=== PATIENT | female | born 2000 | race African-American/Black ===

== ENCOUNTER 2023-11-30 17:17 | Emergency (ER) | payer OTHER, SELFPAY ==
[2023-11-30 17:24] VITALS: BP 122/88; PULSE 93; RESP 18; TEMP 37.3; O2SAT 98; BMI 34.1
--- NOTE | 2023-11-30 17:47 | CT_ITS ---
The [address] [address] Patient Name: DEBBIE SHEPHERD MRN: [id number] date: 2000 Sex: F Assigned Patient Location: ER Current Patient Location: ER Accession/Order Number: [id number] Exam Date: 11/30/2023 18:16 Report Date: 11/30/2023 18:36 At the request of: GALE DELA CRUZ Procedure: CT head/brain wo con EXAM: CT head/brain wo con HISTORY: headache Findings: CT of the head was obtained without IV contrast. There does appear to be cerebellar ectopia and possibly Chiari 1 type malformation. MRI could confirm. There is no evidence of intracranial bleed or localized mass effect. There is no extra-axial fluid collection. Ethmoid sinus mucosal thickening. CT/CT head/brain wo con IMPRESSION: No evidence of acute intracranial hemorrhage. No mass effect or midline shift. Features suspicious for cerebellar ectopia or possibly Chiari I malformation. MRI of the brain would better interrogate. Mild ethmoid sinus mucosal thickening Electronically authenticated by: EILEEN REBOLLEDO Date: 11/30/2023 18:36
--- NOTE | 2023-11-30 17:50 | ED_ITS ---
Documented by User: TIM Pond 11/30/23 19:08 HPI - General Adult General Chief complaint: Upper Respiratory Infection Stated complaint: URTI, Headache, Dizziness Time Seen by Provider: 11/30/23 17:35 Source: patient Mode of arrival: Wheelchair History of Present Illness HPI narrative: Patient is a 23-year-old female who reports a 2 to 3-day history of headache, light sensitivity, weakness, diffuse bodyaches, cough, sore throat. She has not had any objective fevers. She reports multiple episodes of nausea and vomiting. She has not had any diarrhea. She is not concerned for . No sick contacts in the home. She has had no sputum production. She has been using ucyk-rvu-prdfnld cold and flu medication without improvement. Related Data Previous Rx's Medication Instructions Recorded lyvkbxgthavqrrc-aiizfybrxqaoktd-VS 10 ml PO Q6H PRN cold symptoms 11/30/23 2 mg-30 mg-10 mg/5 mL oral syrup #200 mL (Bromfed DM) ketorolac 10 mg tablet 10 mg PO TID PRN pain #10 tabs 11/30/23 metoclopramide HCl 10 mg tablet 10 mg PO Q6H PRN nausea and 11/30/23 (Reglan) vomiting #12 tabs ondansetron 4 mg disintegrating 4 mg PO Q6H PRN nausea and 11/30/23 tablet vomiting #12 tabs Allergies Allergy/AdvReac Type Severity Reaction Status Date / Time amoxicillin Allergy Severe Verified 11/30/23 17:27 Review of Systems ROS Constitutional Denies: fever or chills Eyes Reports: light sensitivity; Denies: change in vision Ears, nose, mouth, and throat Reports: throat pain and nasal congestion; Denies: neck pain Cardiovascular Denies: chest pain Respiratory Reports: cough; Denies: shortness of breath Gastrointestinal Reports: nausea and vomiting Genitourinary Denies: painful urination Musculoskeletal Denies: back pain or neck pain Integumentary/Breast Denies: rash Neurological Reports: headache PFSH PFSH Medical History (Updated 11/30/23 @ 19:03 by TIM Pond) Migraine ?G43.909 - Migraine, unspecified, not intractable, without status migrainosus (ICD-10) Exam Narrative Exam Narrative: Gen.: Awake, alert, in no distress Head: Normocephalic, atraumatic ENT: Moist mucous membranes, Pharyngeal erythema with no tonsillar edema. Uvula midline with no trismus or drooling. Airway widely open and patent. Clear speech. Bilateral TMs clear Respiratory: No respiratory distress, lungs clear bilaterally; No wheezing or r honchi, dry cough noted Cardio: Regular rate and rhythm Extremities: Moves extremities equally Psych: Normal mood and affect Neuro: No focal neuro deficit Skin: Warm, dry, intact Constitutional Vital Signs, click to edit/add: Last Vital Signs Temp 99.1 F 11/30/23 17:24 Pulse 93 H 11/30/23 17:24 Resp 18 11/30/23 17:24 BP 122/88 11/30/23 17:24 Pulse Ox 98 11/30/23 17:24 Course Vital Signs Vital signs: Vital Signs Temperature 99.1 F 11/30/23 17:24 Pulse Rate 93 H 11/30/23 17:24 Respiratory Rate 18 11/30/23 17:24 Blood Pressure 122/88 11/30/23 17:24 Pulse Oximetry 98 11/30/23 17:24 Temperature 99.1 F 11/30/23 17:24 Pulse Rate 93 H 11/30/23 17:24 Respiratory Rate 18 11/30/23 17:24 Blood Pressure 122/88 11/30/23 17:24 Pulse Oximetry 98 11/30/23 17:24 Medical Decision Making MDM Narrative Medical decision making narrative: Patient medicated with IV fluids, Toradol, Reglan, Benadryl. She is negative for COVID, influenza, strep. CT of the brain was performed for complaint of headache. This shows no evidence of any acute process although the patient was found to have an abnormality, possible Chiari malformation. She will need to follow-up for an MRI. She was given these results by attending physician on reevaluation. Her vital signs are within normal limits. She has no nuchal rigidity, altered mental status, fevers. She had no episodes of emesis in the emergency department. She will be sent home with symptomatic treatment for sore throat, cough and congestion with Bromfed-DM and Toradol and Reglan were given for headache symptoms and bodyaches. Follow-up with PCP and return to the ER if symptoms change or worsen. Medical Records Medical records reviewed: Yes I reviewed the patient's medical records Lab Data Lab results reviewed: Yes I reviewed the patient's lab results Labs: Lab Results 11/30/23 Range/Units 17:46 Influenza Type A Ag Negative Influenza Type B Ag Negative SARS-CoV-2 Ag (CV2AG) Negative (NEGATIVE) Streptococcus Screen Negative Imaging Data CT scan - head: Attestation: I have reviewed the pertinent imaging results. Radiologist's impression: ITS Impressions Head CT 11/30/23 17:47 IMPRESSION: No evidence of acute intracranial hemorrhage. No mass effect or midline shift. Features suspicious for cerebellar ectopia or possibly Chiari I malformation. MRI of the brain would better interrogate. Mild ethmoid sinus mucosal thickening Electronically authenticated by: EILEEN REBOLLEDO Date: 11/30/2023 18:36 Discharge Plan Discharge Chief Complaint: Upper Respiratory Infection Clinical Impression: Upper respiratory infection, Headache Patient Disposition: Home, Self-Care Time of Disposition Decision: 19:03 Condition: Good Prescriptions / Home Meds: New ketorolac 10 mg tablet 10 mg PO TID PRN (Reason: pain) Qty: 10 0RF ppscfbdummpcqip-unckljorp-YZ [Bromfed DM] 2-30-10 mg/5 mL syrup 10 ml PO Q6H PRN (Reason: cold symptoms) Qty: 200 0RF metoclopramide HCl [Reglan] 10 mg tablet 10 mg PO Q6H PRN (Reason: nausea and vomiting) Qty: 12 0RF ondansetron 4 mg tablet,disintegrating 4 mg PO Q6H PRN (Reason: nausea and vomiting) Qty: 12 0RF Instructions: Upper Respiratory Infection (ED), Acute Headache (ED) Stand Alone Forms: Portal Instructions Referrals: [facility] [Primary Care Provider] - 1 week Discharge Date/Time: 11/30/23 19:32 Documented by User: Curt Hall MD 11/30/23 19:44 HPI - General Adult General Chief complaint: Upper Respiratory Infection Stated complaint: URTI, Headache, Dizziness Time Seen by Provider: 11/30/23 17:35 Related Data Previous Rx's Medication Instructions Recorded zugocmgakuxltqi-ndprrgrwmhzvhbp-OH 10 ml PO Q6H PRN cold symptoms 11/30/23 2 mg-30 mg-10 mg/5 mL oral syrup #200 mL (Bromfed DM) ketorolac 10 mg tablet 10 mg PO TID PRN pain #10 tabs 11/30/23 metoclopramide HCl 10 mg tablet 10 mg PO Q6H PRN nausea and 11/30/23 (Reglan) vomiting #12 tabs ondansetron 4 mg disintegrating 4 mg PO Q6H PRN nausea and 11/30/23 tablet vomiting #12 tabs Allergies Allergy/AdvReac Type Severity Reaction Status Date / Time amoxicillin Allergy Severe Verified 11/30/23 17:27 [facility] Medical History (Updated 11/30/23 @ 19:03 by TIM Pond) Migraine ?G43.909 - Migraine, unspecified, not intractable, without status migrainosus (ICD-10) Exam Constitutional Vital Signs, click to edit/add: Last Vital Signs Temp 99.1 F 11/30/23 17:24 Pulse 93 H 11/30/23 17:24 Resp 18 11/30/23 17:24 BP 122/88 11/30/23 17:24 Pulse Ox 98 11/30/23 17:24 Course Vital Signs Vital signs: Vital Signs Temperature 99.1 F 11/30/23 17:24 Pulse Rate 93 H 11/30/23 17:24 Respiratory Rate 18 11/30/23 17:24 Blood Pressure 122/88 11/30/23 17:24 Pulse Oximetry 98 11/30/23 17:24 Temperature 99.1 F 11/30/23 17:24 Pulse Rate 93 H 11/30/23 17:24 Respiratory Rate 18 11/30/23 17:24 Blood Pressure 122/88 11/30/23 17:24 Pulse Oximetry 98 11/30/23 17:24 Medical Decision Making MDM Narrative Medical decision making narrative: Patient medicated with IV fluids, Toradol, Reglan, Benadryl. She is negative for COVID, influenza, strep. CT of the brain was performed for complaint of headache. This shows no evidence of any acute process although the patient was found to have an abnormality, possible Chiari malformation. She will need to follow-up for an MRI. She was given these results by attending physician on reevaluation. Her vital signs are within normal limits. She has no nuchal rigidity, altered mental status, fevers. She had no episodes of emesis in the emergency department. She will be sent home with symptomatic treatment for sore throat, cough and congestion with Bromfed-DM and Toradol and Reglan were given for headache symptoms and bodyaches. Follow-up with PCP and return to the ER if symptoms change or worsen. I, Dr Hall, have reviewed the above progress note and course of action in the ER; agree with the above. I have personally seen and evaluated this patient, gone over history and physical, and discussed disposition and treatment plan with the patient. Patient was given a copy of her CT of her head. I discussed with the patient the recommendation for follow-up of MRI of her head, she was given a copy of her CAT scan that highlighted the concern for Chiari malformation on the recommendation for MRI of the brain. Patient still has some mild nausea at discharge, she was given a dose of Zofran. Patient's headache has significantly improved. Lab Data Labs: Lab Results 11/30/23 Range/Units 17:46 Influenza Type A Ag Negative Influenza Type B Ag Negative SARS-CoV-2 Ag (CV2AG) Negative (NEGATIVE) Streptococcus Screen Negative Imaging Data CT scan - head: Radiologist's impression: ITS Impressions Head CT 11/30/23 17:47 IMPRESSION: No evidence of acute intracranial hemorrhage. No mass effect or midline shift. Features suspicious for cerebellar ectopia or possibly Chiari I malformation. MRI of the brain would better interrogate. Mild ethmoid sinus mucosal thickening Electronically authenticated by: EILEEN REBOLLEDO Date: 11/30/2023 18:36 Discharge Plan Discharge Chief Complaint: Upper Respiratory Infection Clinical Impression: Upper respiratory infection, Headache Patient Disposition: Home, Self-Care Time of Disposition Decision: 19:03 Condition: Good Prescriptions / Home Meds: New ketorolac 10 mg tablet 10 mg PO TID PRN (Reason: pain) Qty: 10 0RF sfueiesaysfghhf-fthwybsxm-SM [Bromfed DM] 2-30-10 mg/5 mL syrup 10 ml PO Q6H PRN (Reason: cold symptoms) Qty: 200 0RF metoclopramide HCl [Reglan] 10 mg tablet 10 mg PO Q6H PRN (Reason: nausea and vomiting) Qty: 12 0RF ondansetron 4 mg tablet,disintegrating 4 mg PO Q6H PRN (Reason: nausea and vomiting) Qty: 12 0RF Instructions: Upper Respiratory Infection (ED), Acute Headache (ED) Stand Alone Forms: Portal Instructions Referrals: [facility] [Primary Care Provider] - 1 week Discharge Date/Time: 11/30/23 19:32
[2023-11-30] MEDS: METOCLOPRAMIDE HCL 10 MG/2 ML VIAL IVP (18:05)
[2023-11-30] MEDS: KETOROLAC TROMETHAMINE 30 MG/ML VIAL IVP (18:05)
[2023-11-30] MEDS: 0.9 % SODIUM CHLORIDE 1,000 ML 1000 ML IV (18:05)
[2023-11-30] MEDS: DIPHENHYDRAMINE HCL 50 MG/ML (1ML) VIAL 25 MG IV (18:05)
[2023-11-30 18:26] LABS: Internal Control Within Normal Limits; Strep A Antigen Screen Negative
[2023-11-30 18:27] LABS: Influenza Virus A Antigen Negative; Influenza Virus B Antigen Negative; Internal Control Within Normal Limits; SARS-CoV-2 Ag NEGATIVE (NEGATIVE)
[2023-11-30] MEDS: ONDANSETRON PF 4 MG/2 ML VIAL IV (19:21)
== END 2023-11-30 19:32 | disposition home or self-care (01) ==
PROVIDERS: Physician Assistant; Emergency Provider Emergency Medicine
DX: R51.9 Headache, unspecified (principal); J06.9 Acute upper respiratory infection, unspecified; Z20.822 Contact with and (suspected) exposure to COVID-19
CPT/HCPCS: 70450; 87070; 87804; 87811; 87880; 96361; 96374; 96375; 99285; J1200; J1885; J2405; J2765

== ENCOUNTER 2025-09-25 07:38 | Emergency (ER) | payer SELFPAY ==
[2025-09-25 07:47] VITALS: BP 118/89; PULSE 110; TEMP 37.6; O2SAT 99; BMI 33.7
[2025-09-25 08:22] LABS: Hematocrit 43.4 % (36.0-48.0); Hemoglobin 14.1 g/dL (12.0-16.0); Immature Granulocytes Abs Auto 0.01 10^3/uL (0.00-0.03); Immature Granulocytes Pct Auto 0.2 % (0.0-0.5); Lymphocytes Absolute Auto 0.9 10^3/uL (1.2-3.8); Mean Corpuscular HGB Conc 32.5 g/dL (29.9-35.2); Mean Corpuscular Hemoglobin 28.3 pg (26.7-34.0); Mean Corpuscular Volume 87.1 fL (81.0-99.0); Platelet Count 251 10^3/uL (150-450); Red Blood Count 4.98 10^6/uL (4.20-5.40); White Blood Count 6.4 10^3/uL (4.0-11.0)
[2025-09-25] MEDS: 0.9 % SODIUM CHLORIDE 1,000 ML 1000 ML IV (08:28)
[2025-09-25] MEDS: KETOROLAC TROMETHAMINE 30 MG/ML VIAL IVP (08:28)
[2025-09-25] MEDS: DIPHENHYDRAMINE HCL 50 MG/ML VIAL 25 MG IVP (08:28)
[2025-09-25 08:31] LABS: Albumin Level 4.0 g/dL (3.4-5.0); Anion Gap 15.0; Blood Urea Nitrogen 7.0 mg/dL (7.0-18.0); Calcium 8.7 mg/dL (8.5-10.1); Carbon Dioxide 26.4 mmol/L (21.0-32.0); Chloride 101 mmol/L (98-107); Estimated GFR (African America >60 (>=60 mL/min/1.73m^2); Estimated GFR (Non-African Ame >60 (>=60 mL/min/1.73m^2); Glucose 89 mg/dL (74-106); Potassium 3.4 mmol/L (3.5-5.1); Sodium 139 mmol/L (136-145)
[2025-09-25 08:34] LABS: SARS-CoV-2 Ag POSITIVE (NEGATIVE)
--- OUTSIDE RECORDS SUMMARY | 2025-09-25 08:40 | XMS_ITS | Clinical Summary ---
Author Organization [facility] Address [id number] [address] [place] [address] Care Team Providers Care Outpatient Facility Physical Therapist Name Role Phone Services, [facility] Primary Care Provider Allergies Active AllergyReactionsCriticalityNoted ZvnuBlohllgeCgtloozeftkVmqcMdg55/30/2016 Medications No known medications Active Problems ProblemNoted DateDiagnosed DateMigraine with aura and without status migrainosus 08/13/2022Intermittent sccvbd9501/03/2019 Overview (01/03/2019): No inhaler use Mild tetrahydrocannabinol (THC) abuse12/21/2018 Immunizations ImmunizationAdministration DatesNext OqqXOL1503/22/2023(Deferred: Other - immunity ),07/21/2019(Deferred: - IMMUNE),07/20/2019(Deferred: - immune)Tdap03/22/2023(), 07/21/2019(Deferred: - PATIENT HAD IN OFFICE DURING ),07/20/2019( Deferred: - received immunization during )Gnkggmbkx57/08/2023(), 07/21/2019() Family History Medical HistoryRelationNameCommentsAsthmaBrotherDiabetesMotherThyroid Issues MotherDiabetesPaternal GrandmotherAsthmaSisterRelationNameStatusCommentsBrother FatherAliveMotherAlivePaternal GrandmotherSister Social History Tobacco UseTypesPacks/DayYears UsedDateSmoking Tobacco: Every Day Vaping/E-cigarettesSmokeless Tobacco: Never Tobacco Cessation:Ready to Q uit: Not Asked; Counseling Given: Not Answered Comments:Pt reports it has been a long time since smoking Alcohol UseStandard Drinks/WeekCommentsNot Currently0 (1 standard drink = 0.6 oz pure alcohol)occasionalyOverall Financial Resource Strain (CARDIA)AnswerDate RecordedHow hard is it for you to pay for the very basics like food, housing, medical care, and heating?Not very hard05/04/2023HQ-2AnswerDate RecordedTotal Ilyqr873RAPARE - TransportationAnswerDate RecordedIn the past 12 months, has lack of transportation kept you from medical appointments or from getting medications?No03/19/2023In the past 12 months, has lack of transportation kept you from meetings, work, or from getting things needed for daily living?No03/19/2023Edinburgh Depression ScaleAnswerDate Recorded [place] Depression Scale Bnubd253The thought of harming myself has occurred to me.Never05/04/2023Housing InstabilityAnswerDate Recorded Are you worried or concerned that in the next two months you may not have stable housing that you own, rent or stay in as a part of a household?No03/19/2023 ChildcareAnswerDate RecordedDo problems getting childcare provider make it difficult for you to work or study?No05/04/2023EmploymentAnswerDate RecordedEmploymentUnknown 04/24/2019Hunger ScreeningAnswerDate RecordedWithin the past 12 months we worried whether our food would run out before we got money to buy more.Never True08/11/2023Within the past 12 months the food we bought just didn't last and we didn't have money to get more.Never True08/11/2023urpose - LifeAnswerDate RecordedPurpose and direction in qcbqGbddaeo26/11/2021CommentsNoSex and Gender InformationValueDate RecordedSex Assigned at BirthNot on fileLegal Sex Gskztz7606/18/2015 4:41 PM EDTGender IdentityNot on fileSexual OrientationNot on file Last Filed Vital Signs Vital SignReadingTime TakenCommentsBlood Tdmgloid048/6707 9:30 PM EDT Ljzkh3726 9:12 PM NKEQddqtnurmbx20 ??C (98.6 ??F)05/26/2025 9:12 PM EDT Respiratory Mkuu7032 9:12 PM EDTOxygen Ktmrpsrmlk971%05/26/2025 9:30 PM EDTInhaled Oxygen Concentration--Oewwpe13 kg (211 lb 10.3 oz)05/26/2025 9:12 PM PHFUlinzc970.6 cm (5' 4 )05/26/2025 9:12 PM EDTBody Mass Index36.33005/26/2025 9:12 PM EDT Plan of Treatment Health MaintenanceDue DateLast DoneCommentsTobacco Baamctefdw1999Adult BMI Follow Up Plan2017DTaP,Tdap and Td Vaccines (7 - Td or Tdap)03/31/2021 03/31/2011, 07/01/2004, 05/24/2002, Additional history existsPap Smear11/23/2023 11/23/2020epression Wchqdbozk71/, 05/04/2023Influenza Vaccine 5Adult BMI Xanpgeyey34/10/2025Tobacco Fswqmuiwx46/12/2026 05/26/2025 Goals GoalPatient Goal TypeAssociated ProblemsRecent ProgressPatient-Stated?Author home with Tari Alonso LSW Note: Evaluation of progress towards goal: delivered today Medical Devices Not on file Procedures Procedure NamePriorityDate/TimeAssociated DiagnosisCommentsPAP SMEARRoutine 11/23/2020 12:50 PM EST Screening for cervical cancer First trimester from Last 3 Months or Most Recently Relevant to Health Maintenance Results * Pap Smear (11/23/2020 12:50 PM EST)Specimen (Source)Anatomical Location / LateralityCollection Method / VolumeCollection TimeReceived Time11/23/2020 12:50 PM EST11/25/2020 12:52 PM EST Narrative COPATH - 11/27/2020 12:29 PM EST [facility] ? [address] ? [place] [address] ? Gynecologic Cytology Consultation ? Patient Name: DEBBIE SHEPHERD : 2000 (Age: 20) Gender: F Taken: 11/23/2020 Reported: 11/27/2020 Physician(s): Carey Samuel DO ([phone]) Copy To: ?? [facility]. Rec. #: [id number] Acct: # [id number] Final Cytologic Interpretation ThinPrep Pap Test (Cervical): Satisfactory for evaluation. A transformation zone component is present. NEGATIVE FOR INTRAEPITHELIAL LESION OR MALIGNANCY. ?? jja/11/27/2020 Interpretation performed at [facility], [address] [place] [address], License number: [id number]. Electronically Signed Out By ?ELHAM Chavira(ASCP) Date of Last Menstrual Period: ? 09/16/2021 Other Clinical Conditions: Z12.4 Screening for malignant neoplasm of cervix Z34.91 Source of Specimen ??ThinPrep Pap Test (Cervical) ? Thin Prep Pap (INFORMATION SYSTEMS OPERATOR) Fee Code(s): ?? G0145 The Pap test is a screening test with an inherent, but low, probability of error. The Pap test is primarily effective for the diagnosis and prevention of squamous cell carcinoma. Regular screening iscritical for prevention. ThinPrep liquid-based slides, which meet the Bronc Breaker criteria for automated screening, have been screened by the ThinPrep Imaging System (as of 08/01/07) along with an additional manual rescreening by a clam bed laborer and, if indicated, by a pathologist. Authorizing ProviderResult TypeResult StatusTanmeaghan Samuel DOPATHOLOGY/CYTOLOGY ORDERABLESFinal ResultPerforming OrganizationAddressCity/State/ZIP CodePhone Number COPATH from Last 3 Months or Most Recently Relevant to Health Maintenance Advance Directives * Full Code (Latest Code Status on File) Date ActivatedDate InactivatedComments03/19/2023 10:09 PM03/22/2023 4:58 PM * Full Code Date ActivatedDate InactivatedComments05/22/2021 5:21 AM05/24/2021 8:39 PM * Full Code Date ActivatedDate InactivatedComments05/14/2021 7:08 PM05/15/2021 11:36 PM * Full Code Date ActivatedDate InactivatedComments04/15/2021 11:41 AM04/15/2021 4:53 PM * Full Code Date ActivatedDate InactivatedComments07/18/2019 9:17 PM07/21/2019 6:55 PM Care Teams Team MemberRelationshipSpecialtyStart DateEnd Date [facility], [facility] [address] [place], [place] PCP - GeneralFamily Uvtyscrb93/19/20
--- OUTSIDE RECORDS SUMMARY | 2025-09-25 08:40 | XMS_ITS | Clinical Summary ---
Author Organization [facility] Address [address] [place] [address], [address] [place] [address] Care Team Providers Care Director Of Assisted Living Name Role Phone Unavailable Primary Care Provider Unavailabl e Social History Tobacco UseTypesPacks/DayYears UsedDateSmoking Tobacco: Never Assessed CommentsUnknownSex and Gender InformationValueDate RecordedSex Assigned at Not on fileLegal MlpGlalwr16/01/2024 3:00 PM EDTGender IdentityNot on fileSexual OrientationNot on file Plan of Treatment Not on file
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
[2025-09-25 08:44] LABS: Alanine Aminotransferase 21 U/L (14-59); Albumin Globulin Ratio 1.0; Alkaline Phosphatase 67 U/L (46-116); Aspartate Amino Transferase 16 U/L (15-37); Globulin 4.2 g/dL; Total Protein 8.2 g/dL (6.4-8.2)
--- NOTE | 2025-09-25 08:47 | ED_ITS ---
HPI HPI - General Adult General Chief complaint: Nausea/Vomiting/Diarrhea Stated complaint: HEADACHE VOMITING WEAKNESS Time Seen by Provider: 09/25/25 07:51 Source: patient Mode of arrival: walk-in Limitations: no limitations History of Present Illness HPI narrative: Patient is a 25-year-old female presenting to the emergency department for 3 to 4-day history of headaches, nausea, body aches, and generalized fatigue. She has been taking qolk-znp-jycmtvo medications with some relief of her symptoms. She states she has chronic headaches, and today feels like her typical headache. She denies any fevers or chills. No neck pain or stiffness. No photophobia or visual disturbances. She denies being . She has had no abdominal pain, nausea, or vomiting. No chest pain or shortness of breath. Related Data Home Medications ?Medication ?Instructions ?Recorded ?Confirmed No Known Home Medications 09/25/2509/15 Allergies Allergy/AdvReac Type Severity Reaction Status Date / Time amoxicillin Allergy Severe Hives Verified 09/25/25 07:47 Opioid HPI Opioid Management Most Recent Opioid Data: Last Pain Scale 7 Today, 08:28 Last MAR Pain Assessment Today, 08:28 Review of Systems ROS Status of ROS 10 or more systems reviewed and unremark able except as noted in history and below [facility] Medical History (Updated 09/25/25 @ 08:49 by Rakan Yusuf DO) Migraine ?G43.909 - Migraine, unspecified, not intractable, without status migrainosus (ICD-10) Social History Little interest or pleasure in doing things: not at all Feeling down, depressed, or hopeless: not at all Exam Narrative Exam Narrative: CONSTITUTIONAL: Well-appearing, nontoxic, answering questions and following commands appropriately SKIN: Was warm and dry. EYES: Sclerae white. PERRLA. EOMI. EARS, NOSE, THROAT: Moist oral mucosa. RESPIRATORY: Clear to auscultation bilaterally, no wheezes, crackles, or stridor, no use of accessory muscles CARDIOVASCULAR: Tachycardic rate and regular rhythm. There is no S3, S4, murmur, rub. GASTROINTESTINAL: Abdomen is soft, nontender, nondistended. MUSCULOSKELETAL: No peripheral edema. Full range of motion the neck without nuchal rigidity. NEUROLOGIC: Patient is awake and alert. Ambulates with a steady gait. Equal strength of bilateral upper/lower extremities. Facies were symmetrical. Constitutional Vital Signs, click to edit/add: Last Vital Signs Temp 99.6 F 09/25/25 07:47 Pulse 110 H 09/25/25 07:47 Resp 18 09/25/25 07:47 BP 118/89 09/25/25 07:47 Pulse Ox 99 09/25/25 07:47 O2 Del Method Room Air 09/25/25 07:47 Course Vital Signs Vital signs: Vital Signs Temperature 99.6 F 09/25/25 07:47 Pulse Rate 110 H 09/25/25 07:47 Respiratory Rate 18 09/25/25 07:47 Blood Pressure 118/89 09/25/25 07:47 Pulse Oximetry 99 09/25/25 07:47 Oxygen Delivery Method Room Air 09/25/25 07:47 Temperature 99.6 F 09/25/25 07:47 Pulse Rate 110 H 09/25/25 07:47 Respiratory Rate 18 09/25/25 07:47 Blood Pressure 118/89 09/25/25 07:47 Pulse Oximetry 99 09/25/25 07:47 Oxygen Delivery Method Room Air 09/25/25 07:47 Medical Decision Making MDM Narrative Medical decision making narrative: Patient is a 25-year-old female presenting to the emergency department with 3 to 4-day history of headaches, nausea, myalgias, and generalized fatigue. On review of external documentation, patient was seen in the emergency department a year ago. She had a CT of her head as she was having headaches at that time. There is evidence that she likely has a Chiari I malformation. The patient has not yet followed up with neurology or had an MRI performed. She has been doing with chronic migraines for many years now, likely related to the Chiari malformation. Her vital signs on arrival today are significant for mild tachycardia, otherwise were within normal limits. She is afebrile and hemodynamically stable. She is overall well-appearing, nontoxic. She has no nuchal rigidity or fevers to suggest meningitis. She has an unremarkable physical examination. My clinical impression is that the patient's symptoms are secondary to a viral syndrome, likely secondary to COVID/influenza. Swabs were obtained. Laboratory studies were ordered to rule out underlying electrolyte/metabolic derangement. She has no focal neurologic deficits, and her headache is typical for her chronic headaches, I do not believe any imaging is necessary at this time. She was treated with IV Benadryl, IV Toradol, IV Zofran, and 1 L bolus of normal saline. COVID swab positive. Laboratory studies were unremarkable. No significant electrolyte or metabolic derangement. No evidence of acute kidney injury. No anemia, leukocytosis, or thrombocytopenia. No transaminitis or hyperbilirubinemia. test negative. I do believe the patient is stable for discharge. They were instructed to follow up with neurology for evaluation of her likely Chiari I malformation. Return precautions were given including any new or worsening symptoms. Patient understands and agrees to the plan. FINAL IMPRESSION: #Acute COVID-19 infection #History of Chiari I malformation DISPOSITION: Discharged home CONDITION: Good Medical Records Medical records reviewed: Yes I reviewed the patient's medical records Lab Data Lab results reviewed: Yes I reviewed the patient's lab results Labs: Lab Results 09/25/25 09/25/25 Range/Units 08:08 08:13 WBC 6.4 (4.0-11.0) 10^3/uL RBC 4.98 (4.20-5.40) 10^6/uL Hgb 14.1 (12.0-16.0) g/dL Hct 43.4 (36.0-48.0) % MCV 87.1 (81.0-99.0) fL MCH 28.3 (26.7-34.0) pg MCHC 32.5 (29.9-35.2) g/dL RDW 13.2 (11.0-15.0) % Plt Count 251 (150-450) 10^3/uL MPV 9.6 (9.5-13.5) fL Neut % (Auto) 76.2 H (43.0-75.0) % Lymph % (Auto) 14.4 L (20.5-60.0) % [place] % (Auto) 8.4 (1.7-12.0) % Eos % (Auto) 0.3 L (0.9-7.0) % Baso % (Auto) 0.5 (0.2-2.0) % Neut # (Auto) 4.9 (1.4-6.5) 10^3/uL Lymph # (Auto) 0.9 L (1.2-3.8) 10^3/uL [place] # (Auto) 0.5 (0.3-0.8) 10^3/uL Eos # (Auto) 0.0 (0.0-0.7) 10^3/uL Baso # (Auto) 0.0 (0.0-0.1) 10^3/uL Abs Immat Gran (auto) 0.01 (0.00-0.03) 10^3/uL Imm/Tot Granulo (auto) 0.2 (0.0-0.5) % Sodium 139 (136-145) mmol/L Potassium 3.4 L (3.5-5.1) mmol/L Chloride 101 (98-107) mmol/L Carbon Dioxide 26.4 (21.0-32.0) mmol/L Anion Gap 15.0 BUN 7.0 (7.0-18.0) mg/dL Creatinine 0.97 (0.55-1.02) mg/dL Est GFR ( Amer) >60 (>=60 mL/min/1.73m^2) Est GFR (Non-Af Amer) >60 (>=60 mL/min/1.73m^2) BUN/Creatinine Ratio 7.2 Glucose 89 (74-106) mg/dL Calcium 8.7 (8.5-10.1) mg/dL Total Bilirubin 0.6 (0.2-1.0) mg/dL AST 16 (15-37) U/L ALT 21 (14-59) U/L Alkaline Phosphatase 67 (46-116) U/L Total Protein 8.2 (6.4-8.2) g/dL Albumin 4.0 (3.4-5.0) g/dL Globulin 4.2 g/dL Albumin/Globulin Ratio 1.0 Serum HCG, Qual Negative (NEGATIVE) Influenza Type A Ag Negative Influenza Type B Ag Negative SARS-CoV-2 Ag (CV2AG) Positive A (NEGATIVE) Discharge Plan Discharge Chief Complaint: Nausea/Vomiting/Diarrhea Clinical Impression: COVID-19 Patient Disposition: Home, Self-Care Time of Disposition Decision: 08:48 Condition: Good Mode of Transportation: Private Vehicle Prescriptions / Home Meds: No Action No Known Home Medications Print Language: Andorran Instructions: COVID-19 (Coronavirus Disease 2019) (ED) Referrals: [facility] [Primary Care Provider, Unknown] - 1 week
== END 2025-09-25 09:52 | disposition home or self-care (01) ==
PROVIDERS: Emergency Provider Student in an Organized Health Care Education/Training Program
DX: U07.1 COVID-19 (principal)
CPT/HCPCS: 36415; 80053; 84703; 85025; 87804; 87811; 96374; 96375; 99284; J1200; J1885; J2405